=== PATIENT | female | born 2000 | race Caucasian/White ===

== ENCOUNTER 2020-05-31 17:47 | Emergency (ER) | payer OTHER ==
[~2020-05-31] VITALS: Ht 170.2 cm; Wt 74.4 kg
[2020-05-31] MEDS ORDERED: VITAMIN B-650 MG PO (18:03)
[2020-05-31] MEDS ORDERED: PRENATAL FORMU1 EAC3 PO (18:03)
[2020-05-31] MEDS ORDERED: SERTRALINE HCL100 MG PO (18:03)
[2020-05-31] MEDS ORDERED: FOLIC ACID1 MG PO (18:03)
== END 2020-05-31 22:20 | disposition home or self-care (01) ==
LOC: ED 17:47
DX: O46.91 Antepartum hemorrhage, unspecified, first trimester (principal); Z3A.01 Less than 8 weeks gestation of pregnancy; Z91.012 Allergy to eggs; Z79.899 Other long term (current) drug therapy
CPT/HCPCS: 76801; 76817; 84702; 85025; 99284-25

== ENCOUNTER 2021-03-08 20:21 | Inpatient (IN) | payer OTHER ==
[~2021-03-08] VITALS: Ht 167.1 cm; Wt 97.5 kg
[~2021-03-08 20:21] MED LIST: FOLIC ACID1 MG PO; PRENATAL FORMU1 EAC3 PO; SERTRALINE HCL100 MG PO; VITAMIN B-650 MG PO
--- NOTE | 2021-03-09 09:49 | PR ---
[facility] [address] [facility] [address] [place], [place] [address] Signed Progress Notes IP Datetime Report Generated by CPN: 03/09/2021 09:49 PROGRESS NOTES: [id number] Impression: Normal Progression of Labor; Reassuring Heart Rate Procedures: Sterile Vag Exam Plan: Continue Present Management; Anticipate Vaginal Delivery Informed Consent Obtain: Vaginal Delivery VITAL SIGNS: [id number] Vital Signs: Reviewed; Within Normal Limits EXAM: [id number] Dilatation: 9.5 Effacement: 100 Station: 0 Contractions: q 1-2 min MEMBRANES: [id number] Comments: Pt seen and examined. Doing well. Feeling increased pelvic pressure. Will start pushing w/ RN. Anticipate soon FETUS A: [id number] FHR Baseline: 135 Variability: Moderate 6-25bpm Accelerations: 15X15 Decelerations: None FHR Category: Category I Presentation: Vertex Comments on Fetus A: No evidence of metabolic acidosis FETUS B: [id number] Signing Physician: Nicki Yepez DO Copies: ~ *Electronically Signed* 03/09/21 0949 NICKI YEPEZ DO PATIENT NAME: KAL BURCH MARCELL PROGRESS NOTE DATE OF : 99 PHYSICIAN: NICKI YEPEZ DO RPT #: [id number] REPORT IS CONFIDENTIAL AND NOT TO BE RELEASED WITHOUT AUTHORIZATION
--- NOTE | 2021-03-10 20:35 | PR ---
[facility] [address] [facility] [address] [facility] [place], [place] [address] Signed PP Progress Notes Datetime Report Generated by CPN: 03/10/2021 20:35 SUBJECTIVE: [id number] Pain: Within Normal Limits Nausea/Vomiting: Denies Flatus: Yes Vital Signs: [id number] Vital Signs: Reviewed; Within Normal Limits EXAM: Ongoing Cardiovascular: Normal Respiratory: Normal Abdomen/Uterus: Normal Lochia: Normal Vulva/Perineum: Not Done Breasts: Not Done CVA Tenderness: Normal Extremities: Normal Incision: Not Applicable Progress: Normal Exam Comments: Fundus firm U-2 nontender. Hgb 8.8 IMPRESSION/PLAN/PROCEDURES: [id number] Impression: Normal Progression Plan: Continue Present Management Progress Notes: Pt seen and examined. Doing well. Ambulating, voiding, and tolerating full diet. Pain and lochia minimal. well. No fevers/chills. Does complain of some lightheadedness w/ standing. Will initiate iron therapy. All questions answered to best of my ability and to pt's apparent satisfaction. Anticipate d/c home tomorrow. Reviewed d/c instructions Signing Physician: Nicki Yepez DO Copies: ~ *Electronically Signed* 03/10/212034 NICKI YEPEZ DO PATIENT NAME: KAL BURCH MARCELL PROGRESS NOTE DATE OF : 99 PHYSICIAN: NICKI YEPEZ DO RPT #: [id number] REPORT IS CONFIDENTIAL AND NOT TO BE RELEASED WITHOUT AUTHORIZATION
--- NOTE | 2021-03-11 05:31 | PR ---
[facility] [address] [place], [place] [address] Signed PP Progress Notes Datetime Report Generated by CPN: 03/11/2021 05:31 SUBJECTIVE: [id number] Pain: Within Normal Limits Nausea/Vomiting: Denies Flatus: Yes Bowel Movement: No Vital Signs: [id number] Vital Signs: Reviewed Notable Details: Isolated elevated systolic BP at 00:55, otherwise normal EXAM: Ongoing Cardiovascular: Normal Respiratory: Normal Abdomen/Uterus: Normal Lochia: Normal Vulva/Perineum: Not Done Breasts: Not Done CVA Tenderness: Normal Extremities: Normal Incision: Not Applicable Progress: Normal Exam Comments: Fundus firm U-2 nontender IMPRESSION/PLAN/PROCEDURES: [id number] Impression: Normal Progression Plan: Discharge Progress Notes: Pt seen and examined. Doing well. Ambulating, voiding, and tolerating full diet. Pain and lochia minimal. well. No fevers/chills. Mild lightheadedness improved. Hgb 8.8 and bleeding scant. Pt desires d/c home today. We reviewed d/c medications, instructions, and indications for urgent evaluation in detail. Pt planning condoms and natural family planning for contraception. All questions answered to best of my ability and to pt and parnters apparent satisfaction. Signing Physician: Nicki Yepez DO Copies: ~ *Electronically Signed* 03/11/21 0531 NICKI YEPEZ DO PATIENT NAME: KAL BURCH MARCELL PROGRESS NOTE DATE OF : 99 PHYSICIAN: NICKI YEPEZ DO RPT #: [id number] REPORT IS CONFIDENTIAL AND NOT TO BE RELEASED WITHOUT AUTHORIZATION
== END 2021-03-11 11:00 | disposition home or self-care (01) | DRG 806 ==
LOC: FBC 20:21
PROVIDERS: ADMIT Obstetrics & Gynecology; ATTEND Obstetrics & Gynecology
PROC: 10E0XZZ Delivery of Products of Conception, External Approach (ICD-10-PCS; principal; 2021-03-09)
PROC: 00HU33Z Insertion of Infusion Device into Spinal Canal, Percutaneous Approach (ICD-10-PCS; 2021-03-09)
PROC: 3E0R3BZ Introduction of Anesthetic Agent into Spinal Canal, Percutaneous Approach (ICD-10-PCS; 2021-03-09)
PROC: 10907ZC Drainage of Amniotic Fluid, Therapeutic from Products of Conception, Via Natural or Artificial Opening (ICD-10-PCS; 2021-03-09)
PROC: 0HQ9XZZ Repair Perineum Skin, External Approach (ICD-10-PCS; 2021-03-09)
DX: O69.81X0 Labor and delivery complicated by cord around neck, without compression, not applicable or unspecified (principal); D62 Acute posthemorrhagic anemia; Z37.0 Single live birth; Z3A.39 39 weeks gestation of pregnancy; O70.0 First degree perineal laceration during delivery; O90.81 Anemia of the puerperium; O99.344 Other mental disorders complicating childbirth; F32.9 Major depressive disorder, single episode, unspecified; O99.62 Diseases of the digestive system complicating childbirth; K21.9 Gastro-esophageal reflux disease without esophagitis; Z79.899 Other long term (current) drug therapy; Z87.891 Personal history of nicotine dependence
CPT/HCPCS: 01960; 36415; 85027; A9270; J2001; J2590; J2795; J7121